=== PATIENT | female | born 1985 | race Caucasian/White ===

== ENCOUNTER 2017-06-05 22:15 | Emergency (ER) | payer OTHER ==
[~2017-06-05] VITALS: Ht 175.3 cm; Wt 87.5 kg
[2017-06-06 00:41] VITALS: BP 112/82
== END 2017-06-06 00:41 | disposition home or self-care (01) ==
LOC: ED 22:15
DX: S80.811A Abrasion, right lower leg, initial encounter (principal); Z79.899 Other long term (current) drug therapy; W54.0XXA Bitten by dog, initial encounter; Y93.89 Activity, other specified; Y92.89 Other specified places as the place of occurrence of the external cause; Y99.8 Other external cause status
CPT/HCPCS: 90715

== ENCOUNTER 2019-03-09 19:17 | Emergency (ER) | payer OTHER ==
[~2019-03-09] VITALS: Ht 175.3 cm; Wt 83.0 kg
[2019-03-09 19:46] VITALS: Ht 175.3 cm; Wt 83.0 kg
[2019-03-09 19:56] LABS: microscopic required? NO
[2019-03-09 20:13] LABS: UA SPECIFIC GRAVITY <=1.005 (1.005-1.035); urine erythrocyte NEGATIVE (NEGATIVE)
[2019-03-09 20:16] LABS: CALCIUM 9.1 mg/dL (8.5-10.1); CARBON DIOXIDE 28.2 mmol/L (21-32); CHLORIDE SERUM 105 mmol/L (98-107); CREATININE SERUM 0.8 mg/dL (0.6-1.0); GFR1 > 60 mL/min; GLUCOSE SERUM 90 mg/dL (74-106); POTASSIUM SERUM 3.6 mmol/L (3.5-5.1); SODIUM SERUM 141 mmol/L (136-145)
[2019-03-09 20:21] LABS: ALBUMIN 3.6 g/dL (3.4-5.0); ALKALINE PHOSPHATASE 62 U/L (46-116); ALT/SGPT 21 U/L (14-59); AST/SGOT 15 U/L (15-37); BASOPHIL % 0.8 % (0-2); BILIRUBIN TOTAL 0.3 mg/dL (0.20-1.00); PLATELET COUNT 311 x10^3mcL (130-400)
[2019-03-09 20:23] LABS: RED CELL DISTRIBUTION WIDTH 16.9 % (11.5-14.5)
[2019-03-09 21:44] LABS: PHOSPHOROUS 3.4 mg/dL (2.5-4.9)
[2019-03-09 22:20] LABS: AMPHETAMINE QUAL UR NONE DETECTED (See below)
[2019-03-09] MEDS ORDERED: LAMOTRIGINE100 M1 PO (22:36)
[2019-03-09 23:28] VITALS: BP 112/55
== END 2019-03-10 02:39 ==
LOC: ED 19:17 → DU 21:15 → ED 21:15
PROVIDERS: Emergency Medicine; Internal Medicine
DX: T42.4X1A Poisoning by benzodiazepines, accidental (unintentional), initial encounter (principal); R45.851 Suicidal ideations; F41.9 Anxiety disorder, unspecified; Y92.89 Other specified places as the place of occurrence of the external cause
CPT/HCPCS: 36415; G0480

== ENCOUNTER 2020-08-11 23:18 | Emergency (ER) | payer MEDICAID ==
[~2020-08-11] VITALS: Ht 172.7 cm; Wt 97.5 kg
[~2020-08-11 23:18] MED LIST: LAMOTRIGINE100 M1 PO
[2020-08-11 23:19] VITALS: Ht 172.7 cm; Wt 97.5 kg
[2020-08-12 00:43] VITALS: BP 103/64
== END 2020-08-12 00:43 | disposition left against medical advice (07) ==
LOC: ED 23:18
DX: O26.893 Other specified pregnancy related conditions, third trimester (principal); R55 Syncope and collapse; R10.9 Unspecified abdominal pain; R63.1 Polydipsia; F41.9 Anxiety disorder, unspecified; Z3A.32 32 weeks gestation of pregnancy
CPT/HCPCS: 82962; J7030